=== PATIENT | male | born 1955 | race African-American/Black ===

== ENCOUNTER 2016-08-25 17:18 | Emergency (ER) | payer BC ==
[2016-08-25] MEDS ORDERED: Diazepam 5 MG TAB ONE (18:12)
[2016-08-25] MEDS ORDERED: HYDROcodone/Acetaminophen 10/325 mg Tablet ONE (18:12)
[2016-08-25] MEDS ORDERED: Naproxen 500 MG TAB ONE (18:13)
[2016-08-25] MEDS ORDERED: predniSONE 20 MG TAB ONE (18:13)
== END 2016-08-25 18:30 | disposition home or self-care (01) ==
LOC: MADERS 17:18
DX: M54.42 Lumbago with sciatica, left side (principal); E11.9 Type 2 diabetes mellitus without complications; I10 Essential (primary) hypertension
CPT/HCPCS: 99283; J7506

== ENCOUNTER 2018-03-23 22:03 | Emergency (ER) | payer BC, OTHER ==
[~2018-03-23 22:03] MED LIST: Sodium Chloride 0.9% 1,000 ML BAG ONE
[2018-03-23] MEDS ORDERED: Insulin Regular 300 UNITS/3 ML VIAL ONE (22:48)
[2018-03-23] MEDS ORDERED: Acetaminophen 500 MG TAB ONE (22:49)
[2018-03-23 23:15] LABS: ALT (SGPT) 21 U/L (8-55); AST (SGOT) 16 U/L (5-34); Albumin 4.2 g/dL (3.5-5.0); Alkaline Phosphatase 138 U/L (40-150); Anion Gap 20 mmol/L (10-20); BUN (Urea Nitrogen) 19 mg/dL (8.4-25.7); Bilirubin, Total 0.5 mg/dL (0.2-1.2); Calc. Creatinine Clearance 0 mL/min (70-130); Calcium 10.1 mg/dL (7.8-10.44); Carbon Dioxide 18 mmol/L (22-29); Chloride 97 mmol/L (98-107); Estimated GFR-MDRD 68; Globulin 5.3 g/dL (2.4-3.5); Glucose 526 mg/dL (70-105); Potassium 4.3 mmol/L (3.5-5.1); Protein, Total 9.5 g/dL (6.0-8.3); Sodium 131 mmol/L (136-145)
[2018-03-23 23:20] LABS: CKMB 0.9 ng/mL (0-6.6)
[2018-03-23 23:25] LABS: #Basophils 0.1 thou/uL (0.0-0.2); #Eosinphils 0.2 thou/uL (0.0-0.7); #Lymphocytes 3.3 thou/uL (1.20-3.40); #Monocytes 0.4 thou/uL (0.11-0.59); #Neutrophils 3.3 thou/uL (1.40-6.50); %Basophils 1.8 % (0.0-1.0); %Eosinophils 2.1 % (0.0-10.0); %Lymphocytes 45.4 % (21.0-51.0); %Monocytes 6.1 % (0.0-10.0); %Neutrophils 44.7 % (42.0-75.0); Hemoglobin 15.4 g/dL (14.0-18.0); Mean Corpuscular HGB CONC 34.4 g/dL (32.0-36.0); Mean Corpuscular Hemoglobin 30.1 pg (27.0-31.0); Mean Corpuscular Volume 87.5 fL (78.0-98.0); Mean Platelet Volume 9.9 fL (7.4-10.4); Platelet Count 224 thou/uL (130-400); RBC Distribution Width 12.5 % (11.5-14.5); White Blood Cell (WBC) Count 7.3 thou/uL (4.8-10.8)
[2018-03-23 23:27] LABS: Troponin I Less than 0.010 ng/mL (< 0.028)
[2018-03-23 23:53] LABS: Bilirubin Negative (Negative); Blood, Urine Negative (Negative); Clarity Clear (Clear); Glucose, Urine (Dipstick) >=1000 mg/dL (Negative); Leukocyte Negative (Negative); Nitrite Negative (Negative); Protein, Urine (Dipstick) Negative (Neg-Trace); Urobilinogen 0.2 mg/dL (0.2-1.0); pH, Urine 5.5 (5.0-9.0)
[2018-03-24 02:14] LABS: Anion Gap 16 mmol/L (10-20); BUN (Urea Nitrogen) 18 mg/dL (8.4-25.7); Calc. Creatinine Clearance 0 mL/min (70-130); Carbon Dioxide 20 mmol/L (22-29); Chloride 104 mmol/L (98-107); Estimated GFR-MDRD 87; Glucose 274 mg/dL (70-105); Potassium 3.9 mmol/L (3.5-5.1); Sodium 136 mmol/L (136-145)
== END 2018-03-24 02:28 | disposition home or self-care (01) ==
LOC: MADERS 22:03
DX: E11.65 Type 2 diabetes mellitus with hyperglycemia (principal); E78.5 Hyperlipidemia, unspecified; M10.9 Gout, unspecified; I10 Essential (primary) hypertension; Z79.84 Long term (current) use of oral hypoglycemic drugs
CPT/HCPCS: 36415; 36416; 80048; 80053; 81003; 82553; 84484; 85025; 93005; 94760; 96361; 96374; 96376; J1815; J7050